=== PATIENT | male | born 1970 | race Caucasian/White ===

== ENCOUNTER → 2023-04-20 16:29 | Outpatient (REF) | payer OTHER, SELFPAY | LOC: MRI 3T 16:29 | PROVIDERS: ATTENDING PHYSICIAN Internal Medicine | DX: D17.71 Benign lipomatous neoplasm of kidney (principal) | CPT/HCPCS: 70030; 74183; A9575 ==

== ENCOUNTER → 2023-04-21 17:30 | Outpatient (REF) | payer OTHER, SELFPAY | LOC: MRI 17:30 | PROVIDERS: ATTENDING PHYSICIAN Internal Medicine | DX: M25.562 Pain in left knee (principal) | CPT/HCPCS: 73721 ==

== ENCOUNTER 2024-03-26 23:57 | Emergency (ER) | payer OTHER, SELFPAY ==
[2024-03-27 00:09] VITALS: BP 206/124
[2024-03-27 00:27] VITALS: BMI 39.3
[2024-03-27 00:35] VITALS: BP 169/96
[2024-03-27] MEDS: TORADOL 15 MG IV (00:41)
[2024-03-27 00:51] LABS: % Basophils 0.6 % (0-2); % Eosinophils 2.2 % (0-6); % Immature Granulocytes 0.2 % (0-0.5); % Lymphocytes 18.8 % (20.5-51.1); % Monocytes 9.7 % (1.7-9.3); % Neutrophils 68.5 % (42.2-75.2); Absolute Basophils 0.1 10^3/uL (0-0.2); Absolute Eosinophils 0.2 10^3/uL (0-0.7); Absolute Lymphocytes 1.6 10^3/uL (1.2-3.4); Absolute Monocytes 0.8 10^3/uL (0.1-0.6); Absolute Neutrophils 5.7 10^3/uL (1.4-6.5); Hematocrit 44.4 % (39.0-52.0); Hemoglobin 15.5 g/dL (13.0-18.0); Mean Corp Hgb Conc. 34.9 g/dL (33.0-37.0); Mean Corpuscular Hgb 30.1 pg (27.0-31.0); Mean Corpuscular Volume 86.2 fL (80.0-94.0); Mean Platelet Volume 9.4 fL (7.4-10.4); Nucleated Red Blood Cells % 0 % (-); Platelet Count 187 10^3/uL (130-400); Red Blood Cell Count 5.15 10^6/uL (4.70-6.10); Red Cell Dist. Width 12.6 % (11.5-14.5); White Blood Cell Count 8.4 10^3/uL (4.8-10.8)
[2024-03-27 01:00] VITALS: BP 150/86
--- NOTE | 2024-03-27 01:00 | ED.GENMED ---
History of Present Illness
General
Chief Complaint: Chest Pain
Source: patient
Time Seen by Provider: 03/27/24 00:46
History of Present Illness
History of Present Illness:
53-year-old male presents to the emergency room complaining of pain in his chest and back. Symptoms began earlier today. Pain exists in his upper abdomen and chest and radiates to the upper back. Nothing seems to make it better or worse. No
numbness or tingling in any of his extremities. No nausea or vomiting. Patient was unable to fall asleep due to the pain.
Past History
Past History
ED Past Medical History: GERD, HTN and Hypercholesterolemia
Social History
Tobacco: Non-smoker
Phy Exam
Physical Exam
Physical Exam:
General: Awake, Alert, Oriented X3. No acute distress.
Vitals: Hypertensive
Head: Atraumatic
Eyes: Pupils equal, EOMI
Throat: Airway intact, no exudates
Neck: Trachea midline
Lungs: Clear and equal b/l
Heart: Regular rate, no murmurs
Abd: Soft, no reproducible abdominal pain to palpation, No pulsatile mass
Neuro: Nonfocal
Skin: Warm, dry, no rash
Extremities: pulses equal b/l, no edema
Scores
Heart Score for Chest Pain Patients
STEMI patient?: No
History: Slightly or Non-Suspicious
ECG: Nonspecific Repolarization
Age: >45 - <65 years
Risk Factors: 1 or 2 Risk Factors
Troponin: </= Normal Limit
Heart Score for Chest Pain Patients: 3
Heart Score Risk: 2.5% MACE over next 6 weeks
Course
Orders/Labs/Results
Orders:
Orders
03/27/24 00:10
Electrocardiogram (*1) Urgent
Reason for Study: Chest Pain
EKG- Treatment ONCE
03/27/24 00:33
Complete Blood Count/With Diff Urgent
Comprehensive Metabolic Panel Urgent
Lipase Urgent
Troponin I Urgent
03/27/24 00:40
Ketorolac [Toradol] 15 mg .ROUTE .STK-MED ONE
03/27/24 00:41
Ketorolac [Toradol] 15 mg IV NOW STA
03/27/24 00:59
CT Chest Angio W/wo Iv Contras Urgent
Comment:
Reason For Exam: chest pain radiating to back
03/27/24 03:34
Troponin I Urgent
Abnormal Lab Results
03/27/24
00:33
Absolute Monos (auto) 0.8 H 10^3/uL
(0.1-0.6)
Lymphocytes % 18.8 L %
(20.5-51.1)
Monocytes % 9.7 H %
(1.7-9.3)
BUN 21 H mg/dl
(9-20)
Glucose 113 H mg/dl
(70-99)
ALT 71 H U/L
(0-50)
03/27/24 00:33
03/27/24 00:33
Vital Signs
Initial and Last Documented VS:
Initial Vital Signs
Temp Resp
97.8 F 22
03/27/24 00:06 03/27/24 00:06
Last Documented Vital Signs
Temp Pulse Resp BP Pulse Ox
97.8 F 75 18 148/84 99
03/27/24 00:06 03/27/24 04:48 03/27/24 04:48 03/27/24 04:48 03/27/24 04:48
MDM/Problems Addressed
Differential Diagnosis Includes:
Acute coronary syndrome, GERD, dissection, gastritis
MDM/Problems Addressed:
Patient presents with discomfort in his epigastrium and chest that he states radiates to his back. The area of the back is in the upper thoracic region between his shoulder blades. Patient was quite hypertensive on arrival. Given these
constellation of symptoms CT angiogram was obtained to exclude dissection or PE. CTA is read as unremarkable by radiology. Labs show no elevation of troponin. Troponin was checked twice. EKG shows no acute ischemic changes. Unclear etiology of
the patient's discomfort but suspect GERD or gastritis. Patient stable for discharge home. Follow-up with cardiology and GI as an outpatient.
Chronic conditions affecting care: HTN
*Radiology
Radiology exam reviewed: radiology read reviewed (Vision report essentially normal CTA)
*Pulse Oximetry
Patient hypoxic: no
*EKG
Interpreted by ED Provider?: Yes
Heart Rate: 78
Rate: normal
Rhythm: sinus
QRS Pattern: other (Incomplete right bundle)
Ischemia: non-specific ST changes
*Right Of Way Manager Interpretation
Rate: normal
Interpretation: normal
Rhythm: sinus
*Critical Care Note
Total Time (30-74mins, 75-104mins- exclusive of procedures): Not Applicable
ED Attending Note
-
Portions of this chart may have been created with voice recognition software.� Occasional wrong word or��sound alike� substitutions may have occurred due to the inherent limitations of voice recognition software.
Discharge Plan
Departure
Patient Disposition: Home (Routine Discharge)
Date of Disposition: 03/27/24
Time of Disposition: 04:35
Patient with high blood pressure during this ER visit?: Yes
Condition: Good
Discharge Problem:
Chest pain
Instructions: Chest Pain CBC Follow Up
Prescriptions:
No Action
atorvastatin 10 MG tablet
10 mg PO DAILY
pantoprazole 40 MG tablet,delayed release (DR/EC)
40 mg PO DAILY
losartan 25 MG tablet
25 mg PO DAILY
azithromycin 250 MG tablet
250 mg PO DAILY Qty: 4 0RF
cefuroxime axetil 500 MG tablet
500 mg PO BID Qty: 14 0RF
albuterol sulfate [Proventil HFA] 90 MCG/PUFF HFA aerosol inhaler
2 puff inhalation Q4HPRN PRN (Reason: shortness of breath, wheezing) Qty: 1 0RF
Referrals:
Kartik Simpson MD [Active] -
Edmundo Hood MD [Active] -
Min Carroll DO [Family Provider] -
Interventions
Interventions:
*Risk Screen - Suicide Last Done: 03/27/24 00:06
*General Assessment Last Done: 03/27/24 00:39
*Neglect/Abuse Screening Last Done: 03/27/24 00:06
ED- Fall Risk Assessment Last Done: 03/27/24 00:37
*ED COVID-19 Vaccine History Last Done: 03/27/24 00:39
*Nursing Disposition Last Done: 03/27/24 04:48
ED- Cardiac Assessment Last Done: 03/27/24 00:37
ED-Musculoskeletal Assessment Last Done: 03/27/24 00:38
Discharge Date and Time
Discharge Date/Time: 03/27/24 04:50
Print Language: KOREAN
[2024-03-27 01:15] LABS: ALT (SGPT) 71 U/L (0-50); AST (SGOT) 49 U/L (17-59); Albumin 4.3 g/dl (3.5-5.0); Alkaline Phosphatase 69 U/L (38-126); Blood Urea Nitrogen 21 mg/dl (9-20); Calcium 8.9 mg/dl (8.4-10.2); Carbon Dioxide 28 mmol/L (22-30); Chloride 102 mmol/L (98-107); Estimated Creatinine Clearance 121 ml/min; Glucose 113 mg/dl (70-99); Potassium 3.7 mmol/L (3.5-5.1); Sodium 137 mmol/L (135-145); Total Bilirubin 0.8 mg/dl (0.2-1.3); Total Protein 6.6 g/dl (6.3-8.2); eGFR > 60.00
[2024-03-27 01:16] LABS: Lipase 50 U/L (23-300)
[2024-03-27 01:25] LABS: Troponin I < 0.012 ng/ml
[2024-03-27 04:30] LABS: Troponin I < 0.012 ng/ml
[2024-03-27 04:48] VITALS: BP 148/84
== END 2024-03-27 04:50 | disposition home or self-care (01) ==
LOC: EMR 23:57
PROVIDERS: EMERGENCY PHYSICIAN Emergency Medicine; FAMILY PHYSICIAN Internal Medicine
DX: R07.9 Chest pain, unspecified (principal); I10 Essential (primary) hypertension; K21.9 Gastro-esophageal reflux disease without esophagitis; E78.00 Pure hypercholesterolemia, unspecified
CPT/HCPCS: 99284; 96374; 71275; 80053; 83690; 84484; 85025; 93005; Q9967

== ENCOUNTER → 2024-03-30 10:39 | Outpatient (REF) | payer OTHER, SELFPAY | LOC: HWRCS 10:39 | PROVIDERS: ATTENDING PHYSICIAN Internal Medicine; FAMILY PHYSICIAN Internal Medicine | DX: I10 Essential (primary) hypertension (principal); R07.9 Chest pain, unspecified | CPT/HCPCS: 78452; 93017; A9500 ==

== ENCOUNTER → 2024-04-13 13:34 | Outpatient (REF) | payer OTHER, SELFPAY | LOC: RCS 13:34 | PROVIDERS: ATTENDING PHYSICIAN Internal Medicine; FAMILY PHYSICIAN Internal Medicine | DX: I10 Essential (primary) hypertension (principal); R07.9 Chest pain, unspecified | CPT/HCPCS: 93306 ==

== ENCOUNTER 2024-06-25 06:20 | Day surgery (SDC) | payer OTHER, SELFPAY | END 2024-06-25 11:12 | disposition home or self-care (01) | LOC: GI 06:20 | PROVIDERS: ATTENDING PHYSICIAN Internal Medicine Gastroenterology | DX: K22.70 Barrett's esophagus without dysplasia (principal); K29.70 Gastritis, unspecified, without bleeding; K22.89 Other specified disease of esophagus; K22.81 Esophageal polyp; R10.10 Upper abdominal pain, unspecified; R07.89 Other chest pain | CPT/HCPCS: 43239; 88305; 88342 ==

== ENCOUNTER 2024-09-21 06:25 | Day surgery (SDC) | payer OTHER, SELFPAY ==
[2024-09-21 09:56] VITALS: BMI 34.5
[2024-09-21 11:17] VITALS: BP 97/57
[2024-09-21 11:30] VITALS: BP 102/62
[2024-09-21 11:45] VITALS: BP 104/62
== END 2024-09-21 11:50 | disposition home or self-care (01) ==
LOC: SDS 06:25
PROVIDERS: ATTENDING PHYSICIAN Internal Medicine Gastroenterology
DX: K22.89 Other specified disease of esophagus (principal); K31.7 Polyp of stomach and duodenum; K86.9 Disease of pancreas, unspecified
CPT/HCPCS: 43259; 88305